=== PATIENT | male | born 1990 | race Caucasian/White ===

== ENCOUNTER 2021-05-07 21:54 | Emergency (ER) | payer MEDICAID, OTHER, SELFPAY ==
[2021-05-07 22:03] VITALS: BP 148/92; PULSE 76; RESP 18; TEMP 36; O2SAT 100; BMI 23.6
[2021-05-07 23:51] VITALS: BP 153/93; PULSE 66; RESP 14; O2SAT 98
--- NOTE | 2021-05-08 01:50 | ED.EAR ---
HPI - Ear Problem General Chief complaint: Ear Problems Stated complaint: ear pain, bleeding from ear Time Seen by Provider: 05/08/21 01:41 Source: patient Mode of arrival: ambulatory Limitations: no limitations History of Present Illness HPI Narrative: 31-year-old male who presents emergency department for evaluation of right ear pain. The patient states that 1 week prior he had a dental infection in his right lower jaw and had to have the tooth extracted. He states that shortly after this procedure he developed pain in his jaw radiating to his ear. He states that over the past 1-2 days his right ear is painful to the touch. He denies any change in hearing. He denies fever or chills. He states that the pain is a constant, sharp pain which is 5/10 at its worse and the pain is worse if he presses on his tragus. He denies using Q-tips. Related Data Previous Rx's Medication Instructions Recorded [id number] 3.3 4 drp OTIC (EAR) LEFT TID 10 Days 05/08/21 mg-3 mg-10 mg-0.5 mg/mL ear #10 ml drops,susp (Cortisporin-TC) Allergies Allergy/AdvReac Type Severity Reaction Status Date / Time No Known Allergies Allergy Verified 05/07/21 22:08 Review of Systems Review of Systems: Yes all other systems are reviewed and are negative [facility] Past Medical History [facility] Narrative: Past medical history: Gastritis. Past surgical history: None. Social history: Patient denies tobacco, alcohol and drug use. Medical History No acute medical problems Surgical History No history of previous surgery Social History Social History Advance Directives: No Advance Directives Information Provided: No Physical Exam Vital Signs: Vital Signs: Last Vital Signs Temp 96.8 F 05/07/21 22:03 Pulse 66 05/07/21 23:51 Resp 14 05/07/21 23:51 BP 153/93 H 05/07/21 23:51 Pulse Ox 98 05/07/21 23:51 Body Mass Index 23.6 Const: General: cooperative and healthy appearing Nutritional Appearance: average body habitus Orientation/consciousness: oriented to person and oriented to place Limitations: no limitations HENMT: Head: Yes normal to inspection, Yes normocephalic and Yes atraumatic Ears: hearing grossly normal bilaterally, TM's normal bilaterally and Abnormal EAC present EAC tenderness on the right (Pain elbows appear to be swollen, who is a small abraded area that has dried blood over it.) General nose exam: Normal external nose present Face and sinus: Yes normal facial exam Mouth: Normal oral and palatal mucosa present and other Teeth and gingiva: other (Tooth 28 is extracted, no gingival swelling or discharge) Eyes: General: appearance normal, both eyes and all related structures Neck: Neck: Yes normal visual inspection, Yes full ROM, Yes no lymphadenopathy, Yes trachea midline and Yes supple Neuro: General: oriented to person and oriented to place Course Course Course Narrative: Patient's presentation physical findings are consistent with otitis externa. Patient was given a prescription for Cortisporin 4 drops the right ear 3 times a day for 10 days. He is advised to take Tylenol and ibuprofen for his pain. The patient was given verbal and printed instructions prior to discharge. The patient was advised to follow-up with his PCP in 2 days and to return to the emergency department if his symptoms get worse or if he develops any new symptoms that are concerning to him. Discharge Plan Discharge Clinical Impression: Otitis externa Patient Disposition: Home, Self-Care Instructions: Otitis Externa (ED) Additional Instructions: Your examination is consistent with an infection of the external auditory ear canal. Use Cortisporin otic drops, 4 drops into the right ear 3 times a day for 10 days. Take ibuprofen 200 mg pills, 3 pills every 6 hours as needed for pain. Take Tylenol (acetaminophen) 500 mg pills, 2 pills every 4 to 6 hours as needed for pain. Follow-up with your doctor in 2 days. Please return to the emergency department if your symptoms get worse or if you develop any symptoms that are concerning to you. Prescriptions: New Cortisporin-TC 3.3-3-10-0.5 mg/mL drops,suspension 4 drp otic (ear) left TID 10 Days Qty: 10 RF: 0
== END 2021-05-08 02:21 | disposition home or self-care (01) ==
PROVIDERS: Emergency Provider Emergency Medicine Emergency Medical Services
DX: H60.93 Unspecified otitis externa, bilateral (principal); H92.03 Otalgia, bilateral; Z79.899 Other long term (current) drug therapy
CPT/HCPCS: 99283